=== PATIENT | female | born 1995 | race African-American/Black ===

== ENCOUNTER 2017-03-08 11:31 | Emergency (ER) | payer BC ==
[~2017-03-08] VITALS: Ht 162.6 cm; Wt 72.0 kg
[2017-03-08 11:29] VITALS: TEMP 37; Ht 162.6 cm; Wt 72.0 kg
[2017-03-08 11:38] VITALS: O2SAT 100
--- NOTE | 2017-03-08 12:06 | EMERGENCY ROOM VISIT NOTE ---
History Report prepared by Debi: Prasanna Mondragon Under the Supervision of: Dr. Ethan Barkley M.D. First contact with patient: 11:40 Chief Complaint: SEIZURE Stated Complaint: SYNCOPE Nursing Triage Summary: syncopal episode with seizure like activity. incon. of urine. states she has been passing out since kindergarten. follows up with pcp. noone has ever witnessed so doesn't know if had seizure after. people at scene ambulated her to ambulance. no postictal period History of Present Illness The patient is a 21 year old female who presents to the Emergency Room with complaints of a syncopal episode that occurred FIT MODEL. At this time, the patient was walking to the bathroom to urinate. She remembers opening the door, but then she passed out. She woke up some time later on her side with a cleaning staff member by her side. She felt dizzy, lightheaded, and nauseated at this time. Per the staff member, the patient was unconscious for a couple of minutes with some seizure-like activity. She hit her head on the carpeted floor. When she passed out, her bladder released. She denies any tongue trauma, fevers, chills, abdominal pain, back pain, neck pain, melena, hematochezia, diarrhea, or abnormal urinary symptoms. She has a history of syncope without seizure-like activity that the patient states occurs when she is sick. She notes having a cold last week, but she has felt well recently. She notes that she has been having regular periods. However, she believes that she needs to change her control because of being "overly emotional." Her only current symptom is a headache. She is not dizzy or lightheaded at this time. She has been eating and drinking normally. Source of History: patient Onset: FIT MODEL Position: other (global) Symptom Intensity: 1 episode Quality: other (Syncope) Timing: resolved Associated Symptoms: + headache, No fevers, No chills, No neck pain, No nausea, No abdominal pain, No back pain, No melena, No hematochezia, No diarrhea , No urinary symptoms Review of Systems All systems have been listed, reviewed, and are negative other than those previously mentioned. Please see Additional Medical History Sheet. Past Medical & Surgical Medical Problems: (1) Syncopal episodes Family History Cancer Diabetes mellitus Hypertension Social History Smoking Status: Never Smoker Smokeless Tobacco Use: No Alcohol Use: occasionally Drug Use: none Marital Status: single Housing Status: lives with family Occupation Status: employed, student Current/Historical Medications Scheduled Control Pills ( Control Pills), 1 TAB PO DAILY Allergies Coded Allergies: Amoxicillin (Verified Allergy, Unknown, HIVES, 03/08/17) Clavulanic Acid (Verified Allergy, Unknown, HIVES, 03/08/17) Physical Exam Vital Signs Date Time Temp Pulse Resp B/P (MAP) Pulse Ox O2 Delivery O2 Flow Rate FiO2 03/08/17 15:05 68 18 118/70 98 Room Air 03/08/17 14:24 82 15 119/72 100 Room Air 03/08/17 14:19 119/72 03/08/17 14:18 120/72 03/08/17 14:17 114/63 03/08/17 14:16 63 15 114/63 100 Room Air 78 120/72 86 119/72 03/08/17 14:16 76 17 99 03/08/17 14:01 72 20 116/66 99 03/08/17 13:46 60 18 99 03/08/17 13:31 60 18 115/70 100 03/08/17 13:16 63 16 03/08/17 13:04 121/71 03/08/17 12:31 65 19 116/71 03/08/17 12:16 63 17 97 03/08/17 12:16 63 03/08/17 12:09 124/84 03/08/17 11:38 100 Room Air 03/08/17 11:29 37.0 80 18 130/76 98 Room Air Physical Exam GENERAL: Patient awake, alert, oriented x 3. Patient follows commands. Patient does not appear toxic. Patient is adequately hydrated and well- nourished. SKIN: No erythema, pallor, cyanosis or rash HEENT: Slight tenderness over the right holiness, no break in the skin. No cruz sign, no raccoon sign. No hemotympanum. Pupils equal, reactive to light and accommodation. Slight amount of fluid behind the left TM. Right TM is normal. Oral cavity and posterior pharynx appear normal. Neck: Supple, no rigidity. Without adenopathy, no neck vein distention. LUNGS: Clear to auscultation. No wheezes, no rales, no rhonchi. HEART: No murmurs. No gallops. No rubs ABDOMEN: No masses, no rebound, no hepatomegaly or splenomegaly. EXTREMITIES: No signs of trauma. No pedal or pretibial edema. No calf or thigh tenderness. NEUROLOGIC: Cranial nerves II-XII within normal limits. No gross motor sensory function deficits. Medical Decision & Procedures ER Provider Diagnostic Interpretation: Radiology results as stated below per my review and radiologist interpretation: HEAD CT NONCONTRAST CT DOSE: 537.48 mGy.cm HISTORY: syncope vs seizure TECHNIQUE: Multiaxial CT images of the head were performed without the use of intravenous contrast. Automated exposure control was utilized for this study. A dose lowering technique was utilized adhering to the principles of ALARA. Comparison: None. Findings: The paranasal sinuses and mastoid air cells are clear. The calvarium and skull base are intact. The ventricles and sulci are within normal limits. There is no mass, hematoma, midline shift, or acute infarct. Impression: No acute intracranial abnormality. Electronically signed by: Wilbert Alvarez M.D. 03/08/2017 1:05 PM Dictated Date/Time: 03/08/2017 12:56 PM Laboratory Results 03/08/17 12:40 03/08/17 12:40 Test 03/08/17 12:05 03/08/17 12:40 Urine Color DK YELLOW Urine Appearance CLOUDY (CLEAR) Urine pH 5.5 (4.5-7.5) Urine Specific [place] 1.025 (1.000-1.030) Urine Protein 2+ (NEG) Urine Glucose (UA) NEG (NEG) Urine Ketones NEG (NEG) Urine Occult Blood NEG (NEG) Urine Nitrite NEG (NEG) Urine Bilirubin NEG (NEG) Urine Urobilinogen NEG (NEG) Urine Leukocyte Esterase NEG (NEG) Urine WBC (Auto) 5-10 /hpf (0-5) Urine RBC (Auto) 0-4 /hpf (0-4) Urine Hyaline Casts (Auto) 5-10 /lpf (0-5) Urine Epithelial Cells (Auto) >30 /lpf (0-5) Urine Bacteria (Auto) NEG (NEG) Urine Test NEG (NEG) Red Blood Count 4.20 M/uL (4.2-5.4) Mean Corpuscular Volume 86.4 fL (80-100) Mean Corpuscular Hemoglobin 30.7 pg (25-34) Mean Corpuscular Hemoglobin Concent 35.5 g/dl (32-36) RDW Standard Deviation 38.5 fL (36.4-46.3) RDW Coefficient of Variation 12.2 % (11.5-14.5) Mean Platelet Volume 9.9 fL (7.4-10.4) Anion Gap 7.0 mmol/L (3-11) Est Creatinine Clear Calc Drug Dose 96.8 ml/min Estimated GFR () 106.0 Estimated GFR (Non- 91.5 BUN/Creatinine Ratio 12.6 (10-20) Calcium Level 9.0 mg/dl (8.5-10.1) Troponin I < 0.015 ng/ml (0-0.045) Laboratory results as stated above per my review. Medications Administered Medications (Trade) Dose Ordered Sig/[place] Route Start Time Stop Time Status Last Admin Dose Admin Acetaminophen (Tylenol Tab) 1,000 mg NOW STAT PO 03/08/17 14:16 03/08/17 14:17 DC 03/08/17 14:22 1,000 MG ECG Indication: syncope Rate (beats per minute): 60 Rhythm: sinus rhythm Findings: no acute ischemic change, no ectopy, other (Marked sinus arrhythmia, ) ED Course 1140: Past medical records reviewed. The patient was evaluated in room C4. A complete history and physical examination was performed. 1410: After reevaluation, the patient has a headache. I will order her some Tylenol. 1416: Ordered Tylenol Tab 1000 mg PO 1503: The patient completed her ambulatory trial without complication. She is doing well. She does not have any lightheadedness or dizziness at this time. 1530: Upon reevaluation, the patient appeared to have improvement of her symptoms. I discussed today's findings with her. She verbalized agreement of the treatment plan. She was discharged home. Medical Decision Differential diagnoses considered include vasovagal syncope, seizure, metabolic disorder, anemia, and . After speaking with the patient, it appears that she did not have a seizure but in fact had another one of her syncopal episodes similar to what she has had in the past. There are apparent was no noxious stimuli preceding the event. The patient did feel slightly lightheaded prior to her passing out. There was some small amount of shaking but no postictal period. The patient did have some urinary incontinence but no tongue biting. Multiple labs, EKG and imaging were obtained. Please see above. Orthostatic vital signs and an ambulatory trial were performed prior to her departure. The patient may benefit from a tilt test in the future. In the meantime I do not believe she requires any additional medications. I've encouraged her to follow- up with her family physician or S. Medication Reconcilliation Current Medication List: was personally reviewed by me Blood Pressure Screening Patient's blood pressure: Normal blood pressure Blood pressure disposition: Did not require urgent referral Impression Primary Impression: Vasovagal syncope Scribe Attestation The scribe's documentation has been prepared under my direction and personally reviewed by me in its entirety. I confirm that the note above accurately reflects all work, treatment, procedures, and medical decision making performed by me. Departure Information Dispostion Home / Self-Care Referrals No Doctor, Assigned (PCP) Forms HOME CARE DOCUMENTATION FORM, IMPORTANT VISIT INFORMATION Patient Instructions My [facility] Additional Instructions Follow-up at [facility] or with your family physician within the next 2 weeks. Return here sooner if you have another fainting episode.
[2017-03-08 12:30] LABS: URINE APPEARANCE CLOUDY (CLEAR); URINE BILIRUBIN NEG (NEG); URINE COLOR DK YELLOW; URINE EPITHELIAL CELL AUTO >30 /lpf (0-5); URINE NITRITE NEG (NEG); URINE PH 5.5 (4.5-7.5); URINE SPECIFIC GRAVITY 1.025 (1.000-1.030); UROBILINOGEN NEG (NEG); ZZUR CULT IF INDIC CLEAN CATCH NO
[2017-03-08] MEDS ORDERED: BCPILLS PO (12:32)
[2017-03-08 12:48] LABS: MANUAL MICROSCOPIC REQUIRED? NO; REVIEW REQ? NO
[2017-03-08 12:58] LABS: HEMATOCRIT 36.3 % (37-47); MEAN CELL VOLUME 86.4 fL (80-100); MEAN CORPUSCULAR HEMOGLOBIN 30.7 pg (25-34); MEAN CORPUSCULAR HGB CONC 35.5 g/dl (32-36); MEAN PLATELET VOLUME 9.9 fL (7.4-10.4); PLATELET COUNT 298 K/uL (130-400); WHITE BLOOD COUNT 8.65 K/uL (4.8-10.8)
--- NOTE | 2017-03-08 13:06 | DIAGNOSTIC IMAGING REPORT ---
HEAD CT NONCONTRAST CT DOSE: 537.48 mGy.cm HISTORY: syncope vs seizure TECHNIQUE: Multiaxial CT images of the head were performed without the use of intravenous contrast. Automated exposure control was utilized for this study. A dose lowering technique was utilized adhering to the principles of ALARA. Comparison: None. Findings: The paranasal sinuses and mastoid air cells are clear. The calvarium and skull base are intact. The ventricles and sulci are within normal limits. There is no mass, hematoma, midline shift, or acute infarct. Impression: No acute intracranial abnormality. Electronically signed by: Wilbert Alvarez M.D. 03/08/2017 1:05 PM Dictated Date/Time: 03/08/2017 12:56 PM
[2017-03-08 13:16] LABS: BLOOD UREA NITROGEN 12 mg/dl (7-18); BUN/CREATININE RATIO 12.6 (10-20); CARBON DIOXIDE 25 mmol/L (21-32); CHLORIDE 106 mmol/L (98-107); CREATININE 0.91 mg/dl (0.60-1.20); GLUCOSE 79 mg/dl (70-99); POTASSIUM 4.1 mmol/L (3.5-5.1); SODIUM 138 mmol/L (136-145)
[2017-03-08] MEDS ORDERED: ACETAMINOPHEN 500 MG TAB PO STA (14:16)
[2017-03-08 15:05] VITALS: BP 118/70; PULSE 68; O2SAT 98
== END 2017-03-08 15:30 | disposition home or self-care (01) ==
LOC: C.EDC 11:31 → EDBD 11:31 → C.EDC 15:30
DX: R55 Syncope and collapse (principal); Z88.1 Allergy status to other antibiotic agents; Z88.8 Allergy status to other drugs, medicaments and biological substances; Z80.9 Family history of malignant neoplasm, unspecified; Z83.3 Family history of diabetes mellitus; Z82.49 Family history of ischemic heart disease and other diseases of the circulatory system